=== PATIENT | female | born 2000 | race Caucasian/White ===

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

== ENCOUNTER 2022-07-11 17:14 | Emergency (ER) | payer MEDICAID ==
[~2022-07-11] VITALS: Ht 170.2 cm; Wt 95.5 kg
[2022-07-11] MEDS ORDERED: MEDR150V13 IM (17:20)
[2022-07-11] MEDS ORDERED: ACETAMINOPHEN 500 MG TABLET PO ONE (18:00)
[2022-07-11] MEDS ORDERED: DOXYCYCLINE HYCLATE 100 MG TABLET PO ONE (18:00)
[2022-07-11] MEDS ORDERED: BACITRACIN 0.9 GM PACKET OINTMENT TP ONE (18:00)
[2022-07-11] MEDS ORDERED: BACI28OI9 TP (18:24)
[2022-07-11] MEDS ORDERED: DOXY-354 PO (18:24)
[2022-07-11 18:59] VITALS: BP 135/98
== END 2022-07-11 20:00 | disposition home or self-care (01) ==
LOC: EMS 17:16
DX: S91.209A Unspecified open wound of unspecified toe(s) with damage to nail, initial encounter (principal); J45.909 Unspecified asthma, uncomplicated; F41.9 Anxiety disorder, unspecified; X58.XXXA Exposure to other specified factors, initial encounter; Y93.89 Activity, other specified; Y92.89 Other specified places as the place of occurrence of the external cause; Y99.8 Other external cause status
CPT/HCPCS: 99284; Z7502; Z7610

== ENCOUNTER 2022-10-10 10:23 | Emergency (ER) | payer MEDICAID ==
[~2022-10-10] VITALS: Ht 170.2 cm; Wt 99.1 kg
[~2022-10-10 10:23] MED LIST changes: -AMOX1TAB16 PO; +BACI28.410 TP; +DOXY-354 PO; +MEDR150V13 IM; -PRED-554 PO
[2022-10-10 10:38] VITALS: BP 159/99; PULSE 98; RESP 15; TEMP 98
[2022-10-10 12:30] LABS: APPEARANCE,URINE HAZY (CLEAR); GLUCOSE, URINE (UA) NEGATIVE (NEGATIVE); KETONES,URINE NEGATIVE (NEGATIVE); LEUKOCYTE ESTERASE ,URINE LARGE (NEGATIVE); NITRATE,URINE POSITIVE (NEGATIVE); OCCULT BLOOD,URINE SMALL (NEGATIVE); PROTEIN,URINE TRACE mg/dL (NEGATIVE)
[2022-10-10 12:39] LABS: BILIRUBIN,URINE SMALL (NEGATIVE)
[2022-10-10 12:46] LABS: BACTERIA,URINE Many /HPF (None Seen); WBC,URINE >100 /HPF (0-5)
[2022-10-10 12:47] LABS: SQUAMOUS EPITHELIAL CELL,UR Moderate /LPF (None Seen)
[2022-10-10] MEDS ORDERED: CEPHALEXIN MONOHYDRATE 500 MG CAPSULE PO ONE (13:00)
[2022-10-10] MEDS ORDERED: CEPH-558 PO (14:02)
== END 2022-10-10 14:21 | disposition home or self-care (01) ==
LOC: EMS 10:23
DX: S36.60XA Unspecified injury of rectum, initial encounter (principal); N39.0 Urinary tract infection, site not specified; F41.9 Anxiety disorder, unspecified; J45.909 Unspecified asthma, uncomplicated; Z98.890 Other specified postprocedural states; X58.XXXA Exposure to other specified factors, initial encounter; Y93.89 Activity, other specified; Y92.89 Other specified places as the place of occurrence of the external cause; Y99.8 Other external cause status
CPT/HCPCS: 81001; 84703; 87086; 87186; 87491; 87591; 99283